=== PATIENT | female | born 1970 | race Caucasian/White ===

== ENCOUNTER 2025-03-10 15:24 | Inpatient (IN) | payer OTHER, SELFPAY ==
[2025-03-10] VITALS (7 sets, daily range): BP systolic 132–152; BP diastolic 84–91; BMI 22.3
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
[2025-03-10] MEDS: MOTRIN 600 MG PO (13:16)
[2025-03-10] MEDS: VERSED 2 MG IV (13:43)
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
[2025-03-10 14:37] LABS: Hematocrit 40.8 % (37.0-47.0); Hemoglobin 13.6 g/dL (12.0-16.0); Mean Corp Hgb Conc. 33.3 g/dL (33.0-37.0); Mean Corpuscular Volume 94.9 fL (81.0-99.0); Platelet Count 284 10^3/uL (130-400); Red Cell Dist. Width 11.9 % (11.5-14.5)
[2025-03-10 14:53] LABS: HCG, Serum Qualitative Screen Negative
[2025-03-10 14:54] LABS: Blood Urea Nitrogen 14 mg/dl (7-17); Calcium 10.0 mg/dl (8.4-10.2); Carbon Dioxide 33 mmol/L (22-30); Chloride 99 mmol/L (98-107); Glucose 95 mg/dl (70-99); Potassium 4.3 mmol/L (3.5-5.1); Sodium 138 mmol/L (135-145); eGFR > 60.00
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
[2025-03-10] MEDS: TYLENOL 650 MG PO (19:14)
[2025-03-11] MEDS: TYLENOL 650 MG PO ×4 (02:50→23:24)
[2025-03-11 03:30] VITALS: BP 156/60
[2025-03-11 07:42] VITALS: BP 175/102
--- NOTE | 2025-03-11 08:22 | W.PN.UPDATE ---
Update Note
Progress Note Update
Saw patient this morning and she still has quite a bit of pain right clavicle. Distal neurovascular was intact. Surgical location was marked. She has already signed consent. Surgery will be done by Dr. Vergara later on today around 3 or 4 PM.
Anesthesia is aware that she has a chest tube in and would prefer to leave it in for the surgery. Patient should continue with n.p.o. for now.
[2025-03-11 08:39] LABS: Hematocrit 41.7 % (37.0-47.0); Hemoglobin 14.0 g/dL (12.0-16.0); Mean Corp Hgb Conc. 33.6 g/dL (33.0-37.0); Mean Corpuscular Volume 96.5 fL (81.0-99.0); Platelet Count 270 10^3/uL (130-400); Red Cell Dist. Width 11.9 % (11.5-14.5)
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
[2025-03-11 09:30] LABS: Blood Urea Nitrogen 10 mg/dl (7-17); Calcium 9.8 mg/dl (8.4-10.2); Carbon Dioxide 29 mmol/L (22-30); Chloride 101 mmol/L (98-107); Estimated Creatinine Clearance 105 ml/min; Glucose 112 mg/dl (70-99); Potassium 4.3 mmol/L (3.5-5.1); Sodium 134 mmol/L (135-145); eGFR > 60.00
[2025-03-11 11:40] VITALS: BP 158/95
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
[2025-03-11 15:25] VITALS: BP 148/86
[2025-03-11 19:31] VITALS: BP 141/78
[2025-03-11 23:18] VITALS: BP 139/85
--- NOTE | 2025-03-11 23:31 | PTCARENOTE ---
Pt refused her Heparin injection, educated pt on it. Made SOCIAL SERVICES ANALYST aware.
[2025-03-12] VITALS (7 sets, daily range): BP systolic 124–158; BP diastolic 78–95
[2025-03-12] MEDS: TYLENOL 650 MG PO ×4 (03:09→17:37)
--- NOTE | 2025-03-12 04:40 | W.PN.UPDATE ---
Update Note
Progress Note Update
Patient quite uncomfortable this AM. With right clavicle fracture and PTX. Chest tube in place. Due to OR availability surgery delayed yesterday. Based on OR and surgeon availability patient's surgery will be scheduled as an outpatient this coming
Saturday, [address] Vergara. When pulm deems appropriate to D/c chest tube, and she is medically stable, may be D/c home. Before returning home she understands, and is aware, she needs to stop by our office (on campus [facility] 2nd
floor) to sign paperwork and receive booking slip for Saturday. RUE to remain in sling. Pain control. Follow-up with pulmonary as recommended. Given a diet. Spoke to Hospitalist. Hopeful D/c today, if appropriate.
[2025-03-12 08:44] LABS: Hematocrit 44.7 % (37.0-47.0); Hemoglobin 14.3 g/dL (12.0-16.0); Mean Corp Hgb Conc. 32.0 g/dL (33.0-37.0); Mean Corpuscular Volume 97.4 fL (81.0-99.0); Platelet Count 258 10^3/uL (130-400); Red Cell Dist. Width 11.8 % (11.5-14.5)
[2025-03-12 09:18] LABS: Blood Urea Nitrogen 14 mg/dl (7-17); Calcium 9.9 mg/dl (8.4-10.2); Carbon Dioxide 26 mmol/L (22-30); Chloride 100 mmol/L (98-107); Estimated Creatinine Clearance 105 ml/min; Glucose 143 mg/dl (70-99); Potassium 4.3 mmol/L (3.5-5.1); Sodium 136 mmol/L (135-145); eGFR > 60.00
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
--- NOTE | 2025-03-12 13:45 | PTCARENOTE ---
Dr[facility] suction per orders at this time.
--- NOTE | 2025-03-12 14:08 | W.PN.UPDATE ---
Update Note
Progress Note Update
Appears as though her chest tube will remain until at least tomorrow. Hopefully she can be discharged at that time. Requesting a twelve-lead EKG, which is what she would have needed preoperatively. still planning on right clavicle ORIF this coming
Saturday as an outpatient with Dr. Vergara. If she was discharged today she was going to stop by our office to sign paperwork. However, she may sign surgical consent bedside on Saturday. Will follow her while she is admitted
--- NOTE | 2025-03-12 14:31 | W.PN.UPDATE ---
Update Note
Progress Note Update
Chest tube clamped 03/12 AM
4 hrs follow up CXR with small to moderate Pneumothorax
Chest tube unclamped, placed back to suction -20 cm
F/u CXR in AM. If no air leak in AM, can clamp trial again
--- NOTE | 2025-03-12 17:21 | CM ---
Attempted to see pt who was not willing to see at this time.; 'You can come back in the morning' CT remains in place.
Plan: TBD
[2025-03-12] MEDS: MOTRIN 400 MG PO (19:18)
[2025-03-13] MEDS: MOTRIN 400 MG PO ×5 (03:01→21:00)
[2025-03-13 03:58] VITALS: BP 160/91
[2025-03-13 06:30] LABS: Hematocrit 44.1 % (37.0-47.0); Hemoglobin 14.6 g/dL (12.0-16.0); Mean Corp Hgb Conc. 33.1 g/dL (33.0-37.0); Mean Corpuscular Volume 94.0 fL (81.0-99.0); Platelet Count 240 10^3/uL (130-400); Red Cell Dist. Width 11.7 % (11.5-14.5)
[2025-03-13 06:54] LABS: Blood Urea Nitrogen 16 mg/dl (7-17); Calcium 9.9 mg/dl (8.4-10.2); Carbon Dioxide 30 mmol/L (22-30); Chloride 102 mmol/L (98-107); Estimated Creatinine Clearance 105 ml/min; Glucose 103 mg/dl (70-99); Potassium 4.4 mmol/L (3.5-5.1); Sodium 139 mmol/L (135-145); eGFR > 60.00
[2025-03-13 07:05] VITALS: BP 149/87
--- NOTE | 2025-03-13 08:33 | PTCARENOTE ---
Patient refusing to wear sling to R arm per orders. Educated patient on importance of not bearing weight on R arm. Plan of care ongoing.
[2025-03-13 11:16] VITALS: BP 138/74
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
--- NOTE | 2025-03-13 13:07 | W.PN.HOSP.TC ---
Addendum entered and electronically signed by Brandon Reynoso MD 03/13/25 15:25:
Attending�addendum:
I saw and evaluated the patient. I reviewed the resident�s note and agree with findings and plan as documented in the resident�s note.� Pain under control,�patient seen and examined at bedside, denies any chest pain or shortness of breath, no
abdominal pain, no nausea, no vomiting, no diarrhea or constipation.
X-ray still showing small right apical pneumothorax , pulmonology recommending repeat x-ray in am
Physical�exam:
GENERAL : Patient is awake, alert, oriented x3
HEENT: Nonicteric sclerae, PERRLA, EOMI. Oropharynx clear. Moist mucous membranes. Conjunctivae appear well perfused.
CHEST: Chest tube in place
HEART: Regular rate and rhythm without murmurs.
LUNGS: Clear to auscultation bilaterally.
ABDOMEN: Soft, positive bowel sounds, nontender, no organomegaly.
RECTAL: Deferred.
MUSCLES/EXTREMITIES: Right clavicular fracture, arm sling
NEUROLOGIC: Cranial nerves II-XII intact without motor/sensory deficit.
�
Assessment/plan:
Traumatic pneumothorax.
Status post chest tube.
03/12
clamped
repeat chest x ray shows small to mod pneumothorax.
03/13
X-ray still showing small right apical pneumothorax , pulmonology recommending repeat x-ray in am
Right clavicular fracture.
follow up as OP
OR friday 03/16.
Pain control
CODE STATUS: Full code
DVT prophylaxis: Heparin
Diet: regular
Disposition: repeat chest x ray in am.
�
Total time spent on today�s encounter was 51 minutes which included time spent in counseling the patient/family regarding diagnosis and treatment plan as listed above, goals of care, and symptom management. Case was discussed with nursing staff,
specialists, and care coordinators/case management. All labs and imaging personally reviewed by me. Remainder the time spent in detailed review of previous records, lab data, imaging, and other medical provider documentation.
Original Note:
Today's Communication/Plan
-
Chest Tube for an additional day; CXR in AM, BMP in AM.
Assessment / Plan
Assessment / Plan
Gayla Gutierrez is a 55F who presented to ED with evaluation of right clavicular pain as well as right-sided chest pain with some shortness of breath. Patient had imaging performed which was suggestive of clavicular fracture as well as a large right
sided pneumothorax with lung collapse. Patient had a chest tube placed in the emergency room with resolution of pneumothorax and full reexpansion of lung. R clavicular ORIF planned for outpatient procedure 03/16. This AM, patient still with small
right apical PTX w/ mild airleak with cough.
1. Clavicular fracture
- For outpatient R clav ORIF procedure on 03/16
2. R Lung PTX
- CXR (03/10): Large right-sided pneumothorax is present, with air-fluid level inferiorly compatible with hydropneumothorax component + comminuted fracture of the right clavicle.
- Right Clavicle x-ray (03/10): Comminuted fracture of the right clavicle as described. Right-sided pneumothorax.
- S/p chest tube placement in the ED.
- 03/13: small residual R apical PTX; mild air leak with cough
- Observe for one more day, repeat CXR in AM with potential d/c of chest tube
3. Hyponatremia (resolved)
- 139 this AM
- Daily BMPs
DVT prophylaxis: SCDs, subcu hep
CODE STATUS: Full code
Attending Addendum for Full PE
Anticipated Discharge: Within 24 hours
Subjective/Interval History
-
Date of Service: March 13, 2025
Gayla Gutierrez is a 55F who presented to ED with evaluation of right clavicular pain as well as right-sided chest pain with some shortness of breath. Patient had imaging performed which was suggestive of clavicular fracture as well as a large right
sided pneumothorax with lung collapse. Patient had a chest tube placed in the emergency room with resolution of pneumothorax and full reexpansion of lung. R clavicular ORIF planned for outpatient procedure 03/16. This AM, patient still with small
right apical PTX w/ mild airleak with cough.
No acute complaints, no SOB.
Objective Data
-
Labs:
Laboratory Results
03/13/25
06:10
WBC 8.6
Hgb 14.6
Hct 44.1
Plt Count 240
Sodium 139
Potassium 4.4
Chloride 102
Carbon Dioxide 30
BUN 16
Creatinine 0.6
Glucose 103 H
Calcium 9.9
Vital Signs:
Vital Signs
Temp Pulse Resp BP Pulse Ox
98.5 F 78 16 138/74 98
03/13/25 11:16 03/13/25 11:16 03/13/25 11:16 03/13/25 11:16 03/13/25 11:16
I&O
03/12/25 03/13/25 03/14/25
06:59 06:59 05:59
Intake Total 240 / 240 540 / 540
Output Total / 2 / 2 3 / 3
Balance 221 / 221 538 / 538 -3 / -3
Review of Systems
-
All other systems: Reviewed and negative
Data Reviewed
-
Diagnostic Radiology: Image personally visualized and interpreted and Report Reviewed by me
Labs: Labs Reviewed by me
[2025-03-13 15:15] VITALS: BP 150/91
--- NOTE | 2025-03-13 17:21 | PTCARENOTE ---
Patient refusing heparin subq. Educated patient on risks. SCD on patients.
[2025-03-13 19:30] VITALS: BP 146/85
[2025-03-13 23:00] VITALS: BP 124/73
[2025-03-14] VITALS (7 sets, daily range): BP systolic 117–155; BP diastolic 69–88
[2025-03-14] MEDS: MOTRIN 400 MG PO ×4 (01:00→18:05)
--- NOTE | 2025-03-14 08:38 | PTCARENOTE ---
Patient with multiple complaints: food, sheets, no shower, customer account specialist labs. Patient states, 'I want my hair washed well so I can put highlights in my hair today. My sister is bringing a box of hair color.' RN explained, No highlights while in
hospital. Patient cannot be disconnected from CT suction for that long. Patient verbalized understanding. Patient's sheets were changed and a chair placed in room for patient to sit up during the day.
--- NOTE | 2025-03-14 10:23 | W.PN.UPDATE ---
Update Note
Progress Note Update
The patient was seen and evaluated by Orthopedic surgery on rounds. In the setting of improving PTX, we were planning on RIGHT clavicle ORIF as an outpatient. Unfortunately, there has not been complete resolution of the PTX. Therefore, she will
remain admitted with chest tube in place. Plan for RIGHT clavicle ORIF Saturday under the direction of Dr. Vergara as an inpatient. Consent obtained and placed in patient's chart. NPO pMN Saturday03/15/2025. Pre-operative Ancef and Irrigation OCTOR.
All questions regarding procedure were answered. Orthopedic surgery will continue to follow along.
[2025-03-14 11:09] LABS: Hematocrit 41.6 % (37.0-47.0); Hemoglobin 14.0 g/dL (12.0-16.0); Mean Corp Hgb Conc. 33.7 g/dL (33.0-37.0); Mean Corpuscular Volume 95.9 fL (81.0-99.0); Platelet Count 265 10^3/uL (130-400); Red Cell Dist. Width 11.5 % (11.5-14.5)
[2025-03-14 11:29] LABS: Blood Urea Nitrogen 19 mg/dl (7-17); Calcium 9.6 mg/dl (8.4-10.2); Carbon Dioxide 28 mmol/L (22-30); Chloride 102 mmol/L (98-107); Estimated Creatinine Clearance 90 ml/min; Glucose 116 mg/dl (70-99); Potassium 4.5 mmol/L (3.5-5.1); Sodium 138 mmol/L (135-145); eGFR > 60.00
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
--- NOTE | 2025-03-14 13:41 | W.PN.HOSP.TC ---
Addendum entered and electronically signed by Brandon Reynoso MD 03/14/25 14:01:
Attending�addendum:
I saw and evaluated the patient. I reviewed the resident�s note and agree with findings and plan as documented in the resident�s note.� Pain under control,�patient seen and examined at bedside, denies any chest pain or shortness of breath, no
abdominal pain, no nausea, no vomiting, no diarrhea or constipation.
X-ray still showing small right apical pneumothorax , pulmonology recommending repeat x-ray in am
Physical�exam:
GENERAL : Patient is awake, alert, oriented x3
HEENT: Nonicteric sclerae, PERRLA, EOMI. Oropharynx clear. Moist mucous membranes. Conjunctivae appear well perfused.
CHEST: Chest tube in place
HEART: Regular rate and rhythm without murmurs.
LUNGS: Clear to auscultation bilaterally.
ABDOMEN: Soft, positive bowel sounds, nontender, no organomegaly.
RECTAL: Deferred.
MUSCLES/EXTREMITIES: Right clavicular fracture, arm sling
NEUROLOGIC: Cranial nerves II-XII intact without motor/sensory deficit.
�
Assessment/plan:
Traumatic pneumothorax.
Status post chest tube.
03/12
clamped
repeat chest x ray shows small to mod pneumothorax.
03/13
X-ray still showing small right apical pneumothorax , pulmonology recommending repeat x-ray in am
03/14
X-ray still showing small right apical pneumothorax , pulmonology recommending repeat x-ray in am
Right clavicular fracture.
OR friday 03/16.
Pain control
CODE STATUS: Full code
DVT prophylaxis: Heparin
Diet: regular
Disposition: repeat chest x ray in am. OR saturday
�
Total time spent on today�s encounter was 51 minutes which included time spent in counseling the patient/family regarding diagnosis and treatment plan as listed above, goals of care, and symptom management. Case was discussed with nursing staff,
specialists, and care coordinators/case management. All labs and imaging personally reviewed by me. Remainder the time spent in detailed review of previous records, lab data, imaging, and other medical provider documentation.
Original Note:
Today's Communication/Plan
-
Continue Chest Tube. For OR on Saturday.
Assessment / Plan
Assessment / Plan
Gayla Gutierrez is a 55F who presented to ED with evaluation of right clavicular pain as well as right-sided chest pain with some shortness of breath. Patient had imaging performed which was suggestive of clavicular fracture as well as a large right
sided pneumothorax with lung collapse. Patient had a chest tube placed in the emergency room with resolution of pneumothorax and full reexpansion of lung. R clavicular ORIF planned for outpatient procedure 03/16. This AM, patient still with small
right apical PTX w/ mild airleak with cough.
1. Clavicular fracture
- For outpatient R clav ORIF procedure on 03/16
- Given need to stay in hospital for one more day for additional chest tube treatment, patient given option to stay til procedure on Saturday and agrees.
2. R Lung PTX
- CXR (03/10): Large right-sided pneumothorax is present, with air-fluid level inferiorly compatible with hydropneumothorax component + comminuted fracture of the right clavicle.
- Right Clavicle x-ray (03/10): Comminuted fracture of the right clavicle as described. Right-sided pneumothorax.
- S/p chest tube placement in the ED.
- 03/13: small residual R apical PTX; mild air leak with cough
- 03/14: occasional air leak on chest drain, CXR showing stable but continued right apical PTX
- Observe for one more day, repeat CXR in AM with potential d/c of chest tube
- Can stay in until day of surgery per pulm
3. Hyponatremia (resolved)
- 139 this AM
- Daily BMPs
DVT prophylaxis: SCDs, subcu hep
CODE STATUS: Full code
Anticipated Discharge: 24 - 48 hours
Subjective/Interval History
-
Date of Service: March 14, 2025
Patient seen and examined resting comfortably in bed this morning (late entry). No acute complaints this morning. She denies chest pains, shortness of breath.
Objective Data
-
Labs:
Laboratory Results
03/14/25
11:03
WBC 7.5
Hgb 14.0
Hct 41.6
Plt Count 265
Sodium 138
Potassium 4.5
Chloride 102
Carbon Dioxide 28
BUN 19 H
Creatinine 0.7
Glucose 116 H
Calcium 9.6
Vital Signs:
Vital Signs
Temp Pulse Resp BP Pulse Ox
98.3 F 79 16 119/77 99
03/14/25 11:10 03/14/25 11:10 03/14/25 11:10 03/14/25 11:10 03/14/25 11:10
I&O
03/13/25 03/14/25 03/15/25
06:59 05:59 06:59
Intake Total 540 / 540 240 / 240
Output Total / 2
Balance 538 / 538 234 / 234
Review of Systems
-
History Source: Patient
All other systems: Reviewed and negative
Physical Exam
-
General: Well Developed, Well Nourished, No Apparent Distress and Comfortable
HEENT: Normocephalic, Atraumatic and Moist Mucous Membranes
Respiratory: Clear to Auscultation and Non Labored Respirations; Negative Wheezes, Rales, Rhonchi or Crackles
Cardiac: Regular Rhythm and S1/S2
GI: Soft
Musculoskeletal: No Clubbing, No Cyanosis, No Edema and Other (No calf tenderness)
Skin: Warm and Dry
Neuro: Awake, Alert and Oriented
Psych: Calm
Data Reviewed
-
Diagnostic Radiology: Image personally visualized and interpreted, Report Reviewed by me and Discussed with Patient
Labs: Labs Reviewed by me and Discussed with Patient
--- NOTE | 2025-03-14 14:24 | PTCARENOTE ---
Patient offered mouth care multiple times. Patient replies, 'Let's do it later.' RN assisted patient to bathroom at 1400 and encouraged patient to brush teeth. Patient again refused.
--- NOTE | 2025-03-14 16:45 | PTCARENOTE ---
Patient refusing to wear sling, non compliant with NBW status of right arm, refusing Heparin injections and refusing to wear SCD. Explained to patient and her sister the importance of complying with each intervention. Patient states, 'I am not
wearing the sling I have enough stuff on me. I do not need a blood thinner, I am very active. Patient ignoring me now and texting on her phone.'
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
[2025-03-15 03:20] VITALS: BP 132/80
[2025-03-15] MEDS: MOTRIN 400 MG PO ×5 (03:23→22:19)
--- NOTE | 2025-03-15 05:57 | PTCARENOTE ---
Pt sleeping intermittently t/o the night. Pt non compliant with care at times. No right arm sling. Pt did agree to wear knee high seq for some of the night. Pt refused Hep SQ as ordered. PRN pain medication administered as ordered. Vital signs
stable. Chest tube in place as documented. Pt refusing bed alarm. Call billings in reach. Will monitor.
[2025-03-15 06:33] LABS: Hematocrit 41.5 % (37.0-47.0); Hemoglobin 13.9 g/dL (12.0-16.0); Mean Corp Hgb Conc. 33.5 g/dL (33.0-37.0); Mean Corpuscular Volume 95.0 fL (81.0-99.0); Platelet Count 236 10^3/uL (130-400); Red Cell Dist. Width 11.5 % (11.5-14.5)
[2025-03-15 07:01] LABS: Blood Urea Nitrogen 20 mg/dl (7-17); Calcium 9.9 mg/dl (8.4-10.2); Carbon Dioxide 27 mmol/L (22-30); Chloride 101 mmol/L (98-107); Estimated Creatinine Clearance 105 ml/min; Glucose 122 mg/dl (70-99); Potassium 4.7 mmol/L (3.5-5.1); Sodium 134 mmol/L (135-145); eGFR > 60.00
[2025-03-15 07:48] VITALS: BP 132/75
--- NOTE | 2025-03-15 08:57 | W.PN.UPDATE ---
Update Note
Progress Note Update
The patient was seen and evaluated on rounds this AM. In the setting of improving PTX, we were planning on RIGHT clavicle ORIF as an outpatient. Unfortunately, there has not been complete resolution of the PTX. Therefore, she will remain admitted
with chest tube in place. Plan per pulmonary, which is appreciated. Plan for RIGHT clavicle ORIF Saturday under the direction of Dr. Vergara as an inpatient. Consent obtained and placed in patient's chart. NPO pMN Saturday. Pre-operative
Ancef and Irrigation OCTOR. All questions regarding procedure were answered. Orthopedic surgery will continue to follow along. Discussed with Dr. Galicia. Heparin will be D/c after tonight's dose in anticpation of surgery tomorrow.
--- NOTE | 2025-03-15 11:16 | W.PN.HOSP.TC ---
Addendum entered and electronically signed by Hussain Galicia DO 03/15/25 14:04:
nondisplaced fractures of the right eighth and ninth ribs and subacute to chronic left rib fractures, 10th rib and seventh rib is a valid diagnosis
Original Note:
Today's Communication/Plan
-
Hold heparin at night
N.p.o. at midnight
Chest x-ray with small pneumothorax
Assessment / Plan
Assessment / Plan
Gayla Gutierrez is a 55F who presented to ED with evaluation of right clavicular pain as well as right-sided chest pain with some shortness of breath. Patient had imaging performed which was suggestive of clavicular fracture as well as a large right
sided pneumothorax with lung collapse. Patient had a chest tube placed in the emergency room with resolution of pneumothorax and full reexpansion of lung. R clavicular ORIF planned for outpatient procedure 03/16. This AM, patient still with small
right apical PTX w/ mild airleak with cough.
1. Clavicular fracture
- For R clav ORIF procedure on 03/16
- Given need to stay in hospital for one more day for additional chest tube treatment, patient given option to stay til procedure on Saturday and agrees.
- Hold heparin after tonight's dose
- N.p.o. at midnight
2. R Lung PTX
- CXR (03/10): Large right-sided pneumothorax is present, with air-fluid level inferiorly compatible with hydropneumothorax component + comminuted fracture of the right clavicle.
- Right Clavicle x-ray (03/10): Comminuted fracture of the right clavicle as described. Right-sided pneumothorax.
- S/p chest tube placement in the ED.
- 03/13: small residual R apical PTX; mild air leak with cough
- 03/14: occasional air leak on chest drain, CXR showing stable but continued right apical PTX
-03/15: Very small residual right apical pneumothorax, smaller as compared with previous
- Can stay in until day of surgery per pulm on 03/16
3. Hyponatremia (resolved)
- 134 this AM
- Daily BMPs
DVT prophylaxis: SCDs, subcu hep
CODE STATUS: Full code
Anticipated Discharge: 24 - 48 hours
Subjective/Interval History
-
Patient reports doing well. She reports no shortness of breath no chest pain fevers or chills. Talked with patient about continuing resolution of her pneumothorax demonstrated checks x-ray images to her. Date of Service: March 15, 2025
Objective Data
-
Labs:
Laboratory Results
03/15/25
06:24
WBC 7.7
Hgb 13.9
Hct 41.5
Plt Count 236
Sodium 134 L
Potassium 4.7
Chloride 101
Carbon Dioxide 27
BUN 20 H
Creatinine 0.5 L
Glucose 122 H
Calcium 9.9
Vital Signs:
Vital Signs
Temp Pulse Resp BP Pulse Ox
98.3 F 75 16 132/75 99
03/15/25 03:20 03/15/25 07:48 03/15/25 07:48 03/15/25 07:48 03/15/25 07:48
I&O
03/14/25 03/15/25 03/16/25
05:59 06:59 06:59
Intake Total 240 / 240 1560 / 1560
Output Total
Balance 234 / 234 1560 / 1560 - / 7
Review of Systems
-
History Source: Patient
Constitutional: Denies Fever or Chills
EENT: Denies Sore Throat or Runny Nose
Respiratory: Denies Cough, Trouble Breathing or Wheezing
Cardiac: Denies Chest Pain or Palpitations
Abdomen/GI: Denies Abdominal Pain, Nausea, Vomiting, Diarrhea or Constipated
Genitourinary: Denies Dysuria
Musculoskeletal: Reports Joint Pain (Clavicular area) and Muscle Pain
Skin: Denies Itching
Neuro: Denies Headache or Weakness
Physical Exam
-
General: Well Developed, Well Nourished, No Apparent Distress and Comfortable; Negative Fever
HEENT: Normocephalic and Atraumatic
Respiratory: Clear to Auscultation; Negative Wheezes or Crackles
Cardiac: Regular Rhythm and S1/S2; Negative Murmur
GI: Nontender, Nondistended and Normal Bowel Sounds
Musculoskeletal: No Clubbing and No Edema
Skin: Warm and Dry
Neuro: Awake and Alert
[2025-03-15 11:22] VITALS: BP 123/74
--- NOTE | 2025-03-15 13:27 | PN.CDI ---
CDI
- -
CDI:
Physician Documentation Request
Admit Date: 03/10/25 15:24
Dear Doctor,
Please review the following and provide your response in the progress notes.
Clinical Indicators:
The diagnosis of nondisplaced fractures of the right eighth and ninth ribs and subacute to chronic left rib fractures, 10th rib and seventh rib was included in the signed CXR reports 03/15/25.
Pt admitted with Clavicular fracture and R Lung PTX.
03/10 CXR report: No definite evidence for displaced right rib fracture.
03/12 CXR report: Subtle deformity of the right lateral ninth and eighth ribs, suggesting fractures, morphologic appearance suggesting acute to subacute fractures.
03/15 CXR report: There are nondisplaced fractures of the right eighth and ninth ribs. There are subacute to chronic left rib fractures, 10th rib and seventh rib.
Please indicate in your progress notes if you are in agreement that the above diagnosis is valid for this patient:
nondisplaced fractures of the right eighth and ninth ribs and subacute to chronic left rib fractures, 10th rib and seventh rib is a valid diagnosis (Please include it in your progress notes)
nondisplaced fractures of the right eighth and ninth ribs and subacute to chronic left rib fractures, 10th rib and seventh rib is not a valid diagnosis for this patient
nondisplaced fractures of the right eighth and ninth ribs and subacute to chronic left rib fractures, 10th rib and seventh rib is not yet confirmed but remains a suspected condition
Other
Use of terms such as suspected, likely, concern for, or probable are acceptable for a diagnosis that is being evaluated, monitored or treated as if it exists and can be coded in the inpatient setting, when documented at the time of discharge.
Thank you,
Marnie Ramirez RN, BSN,
CDI Specialist
[employer] [employer]
Please use your independent medical judgment in providing your response.
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
[2025-03-15 16:05] VITALS: BP 147/87
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
[2025-03-15 23:21] VITALS: BP 150/83
[2025-03-16] VITALS (9 sets, daily range): BP systolic 134–157; BP diastolic 79–91
--- NOTE | 2025-03-16 01:32 | PTCARENOTE ---
Pt meets protocol for a bed alarm. Pt continues to refuse bed alarm despite education. Call billings within reach, plan of care ongoing.
[2025-03-16] MEDS: MOTRIN 400 MG PO ×2 (04:39→23:52)
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
--- NOTE | 2025-03-16 11:38 | W.PN.HOSP.TC ---
Addendum entered and electronically signed by Braulio Contreras MD, Resident 03/16/25 11:55:
Assessment / Plan
Assessment / Plan
4. Rib fracture
nondisplaced fractures of the right eighth and ninth ribs and subacute to chronic left rib fractures, 10th rib and seventh rib
03/10 CXR report: No definite evidence for displaced right rib fracture.
03/12 CXR report: Subtle deformity of the right lateral ninth and eighth ribs, suggesting fractures, morphologic appearance suggesting acute to subacute fractures.
03/15 CXR report: There are nondisplaced fractures of the right eighth and ninth ribs. There are subacute to chronic left rib fractures, 10th rib and seventh rib.
Treat conservatively, continue to monitor
Original Note:
Today's Communication/Plan
-
Clavicular ORIF today
Clamp trial after OR
Assessment / Plan
Assessment / Plan
Gayla Gutierrez is a 55F who presented to ED with evaluation of right clavicular pain as well as right-sided chest pain with some shortness of breath. Patient had imaging performed which was suggestive of clavicular fracture as well as a large right
sided pneumothorax with lung collapse. Patient had a chest tube placed in the emergency room with resolution of pneumothorax and full reexpansion of lung. R clavicular ORIF planned for outpatient procedure 03/16. This AM, patient still with small
right apical PTX w/ mild airleak with cough.
1. Clavicular fracture
- For R clav ORIF procedure on 03/16
- Given need to stay in hospital for one more day for additional chest tube treatment, patient given option to stay til procedure on Saturday and agrees.
- ORIF today
2. R Lung PTX
- CXR (03/10): Large right-sided pneumothorax is present, with air-fluid level inferiorly compatible with hydropneumothorax component + comminuted fracture of the right clavicle.
- Right Clavicle x-ray (03/10): Comminuted fracture of the right clavicle as described. Right-sided pneumothorax.
- S/p chest tube placement in the ED.
- 03/13: small residual R apical PTX; mild air leak with cough
- 03/14: occasional air leak on chest drain, CXR showing stable but continued right apical PTX
-03/15: Very small residual right apical pneumothorax, smaller as compared with previous
- Clamp trial after surgery, x-ray in 4 hours
3. Hyponatremia (resolved)
-
- Daily BMPs
DVT prophylaxis: SCDs, subcu hep
CODE STATUS: Full code
Anticipated Discharge: Within 24 hours
Subjective/Interval History
-
Patient was seen at bedside. She reports feeling okay with no issues. date of Service: March 16, 2025
Objective Data
-
Labs:
Laboratory Results
03/16/25
06:00
WBC Pending
Hgb Pending
Hct Pending
Plt Count Pending
Sodium Pending
Potassium Pending
Chloride Pending
Carbon Dioxide Pending
BUN Pending
Creatinine Pending
Glucose Pending
Calcium Pending
Vital Signs:
Vital Signs
Temp Pulse Resp BP Pulse Ox
97.9 F 64 18 136/83 98
03/16/25 07:15 03/16/25 07:15 03/16/25 07:15 03/16/25 07:15 03/16/25 07:15
I&O
03/15/25 03/16/25 03/17/25
06:59 06:59 06:59
Intake Total 1560 / 1560 180 / 180
Output Total 0 / 0
Balance 1560 / 1560 171 / 171 0 / 0
Review of Systems
-
History Source: Patient
Constitutional: Denies Fever or Chills
EENT: Denies Sore Throat or Runny Nose
Respiratory: Denies Cough or Trouble Breathing
Cardiac: Denies Chest Pain or Palpitations
Abdomen/GI: Denies Abdominal Pain, Nausea, Vomiting, Diarrhea or Constipated
Genitourinary: Denies Dysuria
Skin: Denies Itching or Rash
Neuro: Denies Dizzy, Headache or Weakness
Physical Exam
-
General: Well Developed, Well Nourished, No Apparent Distress and Comfortable; Negative Fever
HEENT: Normocephalic and Atraumatic
Respiratory: Clear to Auscultation and Non Labored Respirations; Negative Wheezes or Crackles
Cardiac: Regular Rhythm and S1/S2; Negative Murmur
GI: Soft, Nontender, Nondistended and Normal Bowel Sounds
Musculoskeletal: No Clubbing and No Edema
Skin: Warm and Dry
Neuro: Awake and Alert
[2025-03-16] MEDS: TYLENOL 650 MG PO (12:07)
[2025-03-16 12:27] LABS: Hematocrit 40.6 % (37.0-47.0); Hemoglobin 13.6 g/dL (12.0-16.0); Mean Corp Hgb Conc. 33.5 g/dL (33.0-37.0); Mean Corpuscular Volume 94.0 fL (81.0-99.0); Platelet Count 252 10^3/uL (130-400); Red Cell Dist. Width 11.5 % (11.5-14.5)
[2025-03-16 12:54] LABS: Blood Urea Nitrogen 18 mg/dl (7-17); Calcium 9.8 mg/dl (8.4-10.2); Carbon Dioxide 32 mmol/L (22-30); Chloride 100 mmol/L (98-107); Estimated Creatinine Clearance 105 ml/min; Glucose 93 mg/dl (70-99); Potassium 4.0 mmol/L (3.5-5.1); Sodium 135 mmol/L (135-145); eGFR > 60.00
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
--- NOTE | 2025-03-16 18:58 | W.PN.UPDATE ---
Update Note
Progress Note Update
Saw patient after surgery in PACU, patient requested to go home. Discussed with patient that he cannot go home without clamp trial which we will start now at 7 PM. At 11 PM we will get an x-ray to assess for continuing resolution of pneumothorax.
If no pneumothorax is present keep clamp on until the a.m. when radiology can pull the chest tube. If pneumothorax is present and unclamp until the a.m. Discussed this with patient and she verbalized understanding and the dangers of improperly
pulling chest tube. 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
--- NOTE | 2025-03-16 20:33 | PTCARENOTE ---
Pt adm to unit from PACU @ 1920, RUE in sling + radial pulse good sensation. Chest tube clamped in PACU chest xray ordered for 0. Pt assisted to bathroom for cont void. Pt denies pain @ this time. Pt oriented to room and hospital policies.
Educated on risk of falls r/t to surgery, chest tube and medications. Pt reports she does not have to call for assistance and will get OOB when she needs to. Pt encouraged to use call billings, pt dismissive and argumentative. Pt has been seen 2x in
room ambulating, going through her personal belongings without calling for assistance. Pt educated again on safety. Pt has reported she does not want to woken for VS if she is sleeping, will continue to educated on safety, callbell on bed within
reach
--- NOTE | 2025-03-16 23:20 | PTCARENOTE ---
XRAY completed,chest tube to remain clamped @ this time, order placed.
[2025-03-16] MEDS: ANCEF 5 IV (23:34)
--- NOTE | 2025-03-16 23:44 | PTCARENOTE ---
Pt in room @ this time in bed with RUE sling removed and laying on bedside table. Pt educted on purpose of sling and for arm to remain immobilized. Pt argumentative but agreed to wear sling. Pt ambulated to bathroom w/o sling and then allowed to be
assisted with sling. Pt again complained the sling is not necessary but did leave in place. Pt reported she did not want any further VS or neurovascular checks, she did not want to be disturbed unless she called for assistance. Pt asked for door to
be closed. Pt was in bed with call billings, chest tube clamped @ bedside and sling in place when RN left room.
--- NOTE | 2025-03-17 03:37 | W.PN.UPDATE ---
Update Note
Progress Note Update
Received TT regarding clamping trial of chest tube after surgery. Ct tube clamped at 7pm. Repeat CXR at around 2200. If Pneumothx will have tube unclamped.
2200 CXR showed Minimal right apical pneumothorax (less than 5% of the lung volume). Pt has had this small Pneumothx even when she was on suction. Will leave clamped and she will have another cxr in am.
[2025-03-17 05:41] VITALS: BP 143/81
[2025-03-17] MEDS: MOTRIN 400 MG PO (05:43)
--- NOTE | 2025-03-17 05:48 | W.PN.ORTHO ---
Today's Communication / Plan
-
55F POD [address] Vergara
- Nonweightbearing to right upper extremity
- PT/OT consult placed to assist patient with daily exercises as requested.
- Dressing remain in place until first postoperative visit. Okay to shower.
- Sling for comfort. No active range of motion of the shoulder but okay for active range of motion of the joints distally
- Pain controlled on current regimen. DVT prophylaxis per primary. Diet per primary
Orthopedic surgery will continue to follow while admitted at this time. Discharge information completed
Assessment
.
Distal Motor Intact: Yes
Dressing:
Clean, dry and intact.
Plan
.
Surgery / Date: 03/16/25 right clavicle ORIF
DVT Prophylaxis: Aspirin
Activity:
Out of bed.
PT/OT
Subjective
.
.:
Patient resting comfortably.
Vital Signs and Labs
.
Vital Signs and Labs:
Temp Pulse Resp BP Pulse Ox
98.0 F 82 18 143/81 100
03/17/25 05:41 03/17/25 05:41 03/17/25 05:41 03/17/25 05:41 03/17/25 05:41
Physical Exam
-
Dressing clean dry and intact overlying right clavicle. Neurovascularly intact C5-T1 with intact active range of motion of the elbow and joints distally
--- NOTE | 2025-03-17 07:33 | PTCARENOTE ---
Pt refusing VS this am, per tech pt stated ' Ill let you know when I'm ready, get out of my room'. Care ongoing at this time.
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
--- NOTE | 2025-03-17 11:00 | W.PN.HOSP.TC ---
Today's Communication/Plan
-
Pull chest tube
Dispo planning
Assessment / Plan
Assessment / Plan
Gayla Gutierrez is a 55F who presented to ED with evaluation of right clavicular pain as well as right-sided chest pain with some shortness of breath. Patient had imaging performed which was suggestive of clavicular fracture as well as a large right
sided pneumothorax with lung collapse. Patient had a chest tube placed in the emergency room with resolution of pneumothorax and full reexpansion of lung. R clavicular ORIF planned for outpatient procedure 03/16. This AM, patient still with small
right apical PTX w/ mild airleak with cough.
1. Clavicular fracture
- S/p R clav ORIF procedure on 03/16
Follow-up outpatient with orthopedics
2. R Lung PTX
- CXR (03/10): Large right-sided pneumothorax is present, with air-fluid level inferiorly compatible with hydropneumothorax component + comminuted fracture of the right clavicle.
- Right Clavicle x-ray (03/10): Comminuted fracture of the right clavicle as described. Right-sided pneumothorax.
- S/p chest tube placement in the ED.
- 03/13: small residual R apical PTX; mild air leak with cough
- 03/14: occasional air leak on chest drain, CXR showing stable but continued right apical PTX
-03/15: Very small residual right apical pneumothorax, smaller as compared with previous
- Clamp trial 03/16, x-ray after 4 hours prominent with trace pneumothorax
- IR to pull chest tube
3. Hyponatremia (resolved)
- Daily BMPs
DVT prophylaxis: SCDs, subcu hep
CODE STATUS: Full code
Anticipated Discharge: Today
Subjective/Interval History
-
Patient was seen at bedside this morning. She reports feeling after surgery, does not endorse significant shoulder pain. Looking forward to getting chest tube out. Date of Service: March 17, 2025
Objective Data
-
Labs:
Laboratory Results
03/17/25
06:00
WBC Pending
Hgb Pending
Hct Pending
Plt Count Pending
Sodium Pending
Potassium Pending
Chloride Pending
Carbon Dioxide Pending
BUN Pending
Creatinine Pending
Glucose Pending
Calcium Pending
Vital Signs:
Vital Signs
Temp Pulse Resp BP Pulse Ox
98.0 F 82 18 143/81 100
03/17/25 05:41 03/17/25 05:41 03/17/25 05:41 03/17/25 05:41 03/17/25 05:41
I&O
03/16/25 03/17/25 03/18/25
06:59 06:59 06:59
Intake Total 180 / 180 500 / 500
Output Total 0 / 0
Balance 171 / 171 500 / 500
Review of Systems
-
History Source: Patient
Constitutional: Reports No Symptoms; Denies Fever or Chills
EENT: Denies Sore Throat
Respiratory: Denies Cough or Trouble Breathing
Cardiac: Denies Chest Pain or Palpitations
Abdomen/GI: Denies Abdominal Pain, Nausea, Vomiting, Diarrhea or Constipated
Musculoskeletal: Reports Joint Pain
Skin: Denies Itching
Neuro: Denies Headache
Physical Exam
-
General: Well Developed, Well Nourished, No Apparent Distress and Comfortable; Negative Fever
HEENT: Normocephalic and Atraumatic
Respiratory: Clear to Auscultation; Negative Wheezes or Crackles
Cardiac: Regular Rhythm and S1/S2; Negative Murmur
GI: Soft, Nontender, Nondistended and Normal Bowel Sounds
Musculoskeletal: No Clubbing and No Edema
Skin: Warm and Dry
Neuro: Awake and Alert
--- NOTE | 2025-03-17 11:01 | PN.[facility].UPD ---
Update Note - [facility]
- -
Right chest tube removed. New dry,clean dressing placed over site. Patient tolerated procedure well.
--- NOTE | 2025-03-17 11:30 | PTCARENOTE ---
after chest tube removal, pt argumentative, not wanting to wait for post CT removal CXR pt explained a CXR immediately post removal is required to assure PTX does not return. portable CXR to bedside. post xray pt found climbing out of end of bed, pt
instructed this is unsafe, and she needs to wait in her stretcher for CXR results before returning upstairs. Pt insisting on walking back to her room, unaccompanied. pt told this is against hospital policy, and she must wait on her stretcher for
results before we can call transport to bring her back to her room. pt found to crawl over bottom of the stretcher 2 additional times, asking to walk back to her room herself and again instructed on hospital policy, that getting out of stretcher in
this manner is unsafe, and that she must wait for results. pt visibly frustrated with [facility] staff. when pt transport arrived she proceeded to snap at [facility], demanding he hurry up, asking if he remembered how to get there or if he wanted her to
kick the door open. I later received a tiger text from the primary RN stating patient was told she would receive paperwork from [facility] regarding patient experience. AFter checking with RNs and RTs present, no such conversation took place between the
patient and any staff member of [facility].
--- NOTE | 2025-03-17 12:10 | PTCARENOTE ---
Pt refused VS prior to discharge, educated on hospital policy, continuing to refuse. Care ongoing.
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
--- NOTE | 2025-03-17 12:54 | CM ---
CM following re: discharge planning.
Reviewed pt's chart, met with pt and pt's sister at bedside.
Discharge order noted.
Pt is aware, expressed her agreement and she stated her sister will transport home.
No after care VN needs identified.
D/C plan: home no needs. Sister to transport.
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
== END 2025-03-17 13:04 | disposition home or self-care (01) | DRG 982 ==
LOC: 2 SOUTH 15:24
PROVIDERS: Student in an Organized Health Care Education/Training Program; ADMITTING PHYSICIAN Internal Medicine; ATTENDING PHYSICIAN Internal Medicine; CONSULT PHYSICIAN Internal Medicine; CONSULT PHYSICIAN Orthopaedic Surgery Hand Surgery; EMERGENCY PHYSICIAN Emergency Medicine; FAMILY PHYSICIAN Family Medicine
PROC: 0W9930Z Drainage of Right Pleural Cavity with Drainage Device, Percutaneous Approach (ICD-10-PCS; 2025-03-10)
PROC: 0PS904Z Reposition Right Clavicle with Internal Fixation Device, Open Approach (ICD-10-PCS; 2025-03-16)
DX: J93.9 Pneumothorax, unspecified (principal); E87.1 Hypo-osmolality and hyponatremia; S22.42XA Multiple fractures of ribs, left side, initial encounter for closed fracture; S22.41XA Multiple fractures of ribs, right side, initial encounter for closed fracture; J94.8 Other specified pleural conditions; S42.021A Displaced fracture of shaft of right clavicle, initial encounter for closed fracture; Z87.891 Personal history of nicotine dependence; Z60.2 Problems related to living alone; W19.XXXA Unspecified fall, initial encounter; Y09 Assault by unspecified means
CPT/HCPCS: 32556; 71045; 71046; 73000; 76000; 80048; 84703; 85027; 86850; 86900; 86901; 93005; 96374; 99285